=== PATIENT | male | born 1940 | race Caucasian/White ===

== ENCOUNTER 2019-04-26 10:30 | Emergency (ER) | payer MEDICARE ==
[~2019-04-26] VITALS: Ht 185.4 cm; Wt 87.0 kg
[2019-04-26 10:35] VITALS: BP 158/88
[2019-04-26] MEDS ORDERED: TETanus/Pertussis (Acell)/Diphther VAC/PF (Tdap-Adult) 0.5ml syringe IM ONE (10:55)
[2019-04-26] MEDS ORDERED: LIDOcaine 1% w/EPI 1:200,000 injection 10mL vial IM ONE (10:55)
[2019-04-26] MEDS ORDERED: LIDOcaine 1% w/epiNEPHrine 1:200,000 30ml vial IM ONE (10:55)
== END 2019-04-26 11:48 | disposition home or self-care (01) ==
LOC: ER 10:31
DX: S61.217A Laceration without foreign body of left little finger without damage to nail, initial encounter (principal); W26.8XXA Contact with other sharp object(s), not elsewhere classified, initial encounter; Y93.89 Activity, other specified; Y92.59 Other trade areas as the place of occurrence of the external cause; Y99.8 Other external cause status
CPT/HCPCS: 90471; 99284

== ENCOUNTER 2019-05-04 10:57 | Emergency (ER) | payer MEDICARE ==
[~2019-05-04] VITALS: Ht 185.4 cm; Wt 84.1 kg
[2019-05-04 11:06] VITALS: BP 136/86
== END 2019-05-04 11:59 | disposition home or self-care (01) ==
LOC: ER 10:58
DX: S61.217D Laceration without foreign body of left little finger without damage to nail, subsequent encounter (principal); W26.8XXD Contact with other sharp object(s), not elsewhere classified, subsequent encounter
CPT/HCPCS: 99281; 99283

== ENCOUNTER 2021-12-05 10:51 | Emergency (ER) | payer MEDICARE, OTHER ==
[~2021-12-05] VITALS: Ht 185.4 cm; Wt 88.6 kg
[2021-12-05 11:30] VITALS: BP 149/80
[2021-12-05] MEDS ORDERED: LIDOcaine 1% 30ml preserv. free vial IJ STA (12:36)
[2021-12-05] MEDS ORDERED: CEPH500C2 PO (13:50)
--- NOTE | 2021-12-05 14:22 | NUR ---
TEN SUTURES PUT IN ON LEFT HAND
== END 2021-12-05 14:22 | disposition home or self-care (01) ==
LOC: ER 10:52
DX: S61.412A Laceration without foreign body of left hand, initial encounter (principal); F12.90 Cannabis use, unspecified, uncomplicated; Z79.2 Long term (current) use of antibiotics; X58.XXXA Exposure to other specified factors, initial encounter; Y93.89 Activity, other specified; Y92.89 Other specified places as the place of occurrence of the external cause; Y99.8 Other external cause status
CPT/HCPCS: 12002; 99283